=== PATIENT | female | born 1960 | race African-American/Black ===

== ENCOUNTER → 2016-10-12 | Outpatient (CLI) | payer BC | END | disposition home or self-care (01) | LOC: CDC 08:22 | DX: I25.89 Other forms of chronic ischemic heart disease (principal); R94.31 Abnormal electrocardiogram [ECG] [EKG] | CPT/HCPCS: 93000 ==

== ENCOUNTER 2016-12-05 08:00 | Day surgery (SDC) | payer BC ==
[~2016-12-05] VITALS: Ht 170.2 cm; Wt 127.0 kg
[~2016-12-05 08:00] MED LIST: AMBIEN10 MG PO; ATORVASTATIN CA20 MG PO; IRON325 M1 PO; LISINOPRIL5 MG PO; PHENTERMINE H37.5 MG PO; TRAZODONE HCL50 MG PO
[2016-12-05] MEDS ORDERED: ASPIRIN325 MG PO (08:42)
[2016-12-05 08:51] LABS: POINT-OF-CARE METER ID UU13113696
== END 2016-12-05 17:20 | disposition home or self-care (01) ==
LOC: CATH 08:00
PROVIDERS: Internal Medicine Cardiovascular Disease
DX: R94.39 Abnormal result of other cardiovascular function study (principal); E78.2 Mixed hyperlipidemia; I10 Essential (primary) hypertension; E11.65 Type 2 diabetes mellitus with hyperglycemia; E66.9 Obesity, unspecified; Z68.41 Body mass index [BMI] 40.0-44.9, adult; F17.210 Nicotine dependence, cigarettes, uncomplicated
CPT/HCPCS: 82948; C1769; C1887; J1644; J2250; J3010

== ENCOUNTER 2017-01-12 07:16 | Day surgery (SDC) | payer BC ==
[~2017-01-12] VITALS: Ht 170.2 cm; Wt 128.8 kg
[~2017-01-12 07:16] MED LIST changes: +ASPIRIN325 MG PO
[2017-01-12 07:57] VITALS: BP 135/75
[2017-01-12] MEDS ORDERED: MOTRIN800 MG PO (11:21)
[2017-01-12 12:42] VITALS: BP 120/70
[2017-01-12 13:02] VITALS: BP 130/65
== END 2017-01-12 13:09 | disposition home or self-care (01) ==
LOC: SDC 07:16
PROC: 0UBC8ZX Excision of Cervix, Via Natural or Artificial Opening Endoscopic, Diagnostic (ICD-10-PCS; principal; 2017-01-12)
DX: N88.2 Stricture and stenosis of cervix uteri (principal); A63.0 Anogenital (venereal) warts; N75.0 Cyst of Bartholin's gland; E66.9 Obesity, unspecified; Z68.41 Body mass index [BMI] 40.0-44.9, adult; E11.9 Type 2 diabetes mellitus without complications; E78.5 Hyperlipidemia, unspecified
CPT/HCPCS: 88305; 88342 TC; J0131; J0330; J1100; J1170; J1885; J2250; J2405; J2765; J3010